=== PATIENT | female | born 1985 | race Two or more races ===

== ENCOUNTER 2017-12-18 14:02 | Emergency (ER) | payer OTHER ==
[~2017-12-18] VITALS: Ht 165.1 cm; Wt 83.1 kg
[2017-12-18] MEDS ORDERED: DIPHENHYDRAMINE 25 MG CAPSULE PO ONE (14:30)
[2017-12-18] MEDS ORDERED: FAMOTIDINE 20 MG TABLET PO ONE (14:30)
[2017-12-18] MEDS ORDERED: FAMOTIDINE 20 MG TABLET ONE (14:47)
[2017-12-18] MEDS ORDERED: DIPHENHYDRAMINE 25 MG CAPSULE ONE (14:47)
[2017-12-18 15:02] VITALS: BP 122/78
== END 2017-12-18 15:10 | disposition home or self-care (01) ==
LOC: ED 14:47
DX: L50.9 Urticaria, unspecified (principal); R60.0 Localized edema
CPT/HCPCS: 73610; 93971; 99284; Q0163

== ENCOUNTER 2018-02-12 06:22 | Inpatient (IN) | payer OTHER ==
[~2018-02-12] VITALS: Ht 165.1 cm; Wt 91.0 kg
[2018-02-12] MEDS ORDERED: NEWBORN KIT ONE ×2 (07:10→07:18)
[2018-02-12] MEDS ORDERED: LIDOCAINE/PF 1%, 30ML ONE (07:10)
[2018-02-12] MEDS ORDERED: LACTATED RINGERS 1,000 ML IV SCH ×2 (07:14→10:27)
[2018-02-12] MEDS ORDERED: OXYTOCIN 30U/ 0.9% NaCL 500ML 500 ML IV ONE (07:14)
[2018-02-12] MEDS ORDERED: OXYTOCIN 30U/ 0.9% NaCL 500ML 500 ML IV PRN (07:14)
[2018-02-12] MEDS ORDERED: D5%-LACTATED RINGERS 1,000 ML IV SCH (07:14)
[2018-02-12] MEDS ORDERED: OXYTOCIN 30U/ 0.9% NaCL 500ML 500 ML ONE (07:18)
[2018-02-12] MEDS ORDERED: CALCIUM CARBONATE 500 MG TAB.CHEW PO PRN (07:30)
[2018-02-12] MEDS ORDERED: ONDANSETRON 2MG/ML, 2ML IVPush PRN (07:30)
[2018-02-12] MEDS ORDERED: SODIUM CITRATE/CITRIC ACID 30 ML UDC PO PRN (07:30)
[2018-02-12] MEDS ORDERED: ALUMINUM/MAG/SIMETHICONE 30 ML UDC PO PRN (07:30)
[2018-02-12 08:33] LABS: BASOPHILS # (AUTO) 0.04 x10^3/uL (0-0.1); BASOPHILS % (AUTO) 0 % (0-1); EOSINOPHILS # (AUTO) 0.16 x10^3/uL (0-0.4); EOSINOPHILS % (AUTO) 1 % (1-7); LYMPHOCYTES # (AUTO) 2.53 x10^3/uL (1-3.4); LYMPHOCYTES % (AUTO) 18 % (22-44); MD NO; MEAN CORPUSCULAR HEMOGLOBIN 31.1 pg (27.0-34.8); MEAN CORPUSCULAR VOLUME 91.5 fL (80-100); MEAN PLATELET VOLUME 8.1 fL (7.4-10.4); MONOCYTES # (AUTO) 0.62 x10^3/uL (0.2-0.8); MONOCYTES % (AUTO) 4 % (2-9); NEUTROPHILS % (AUTO) 76 % (42-75); PLATELET COUNT 212 x10^3/uL (130-400); RED BLOOD COUNT 3.98 x10^6/uL (3.82-5.3); RED CELL DISTRIBUTION WIDTH 13.4 % (9.6-15.2)
[2018-02-12] MEDS ORDERED: FENTANYL PF 100 MCG/2ML ONE ×2 (08:55→09:53)
[2018-02-12] MEDS: FENTANYL PF 100 MCG/2ML IVPush PRN ×2 (08:57→09:57)
[2018-02-12] MEDS ORDERED: LACTATED RINGERS 1,000 ML INTUTE SCH (10:00)
[2018-02-12] MEDS ORDERED: LACTATED RINGERS 1,000 ML INTUTE PRN (10:00)
[2018-02-12] MEDS ORDERED: FENTANYL/BUPIV./NS/PF 250 ML EPIDCONT SCH (10:27)
[2018-02-12] MEDS ORDERED: FENTANYL/BUPIV./NS/PF 0 ML EPIDCONT ONE (10:30)
[2018-02-12] MEDS ORDERED: LACTATED RINGERS 1,000 ML IVBOLUS PRN (10:30)
[2018-02-12] MEDS ORDERED: BUPIVACAINE/PF 0.25% ONE (10:30)
[2018-02-12] MEDS ORDERED: EPHEDRINE 50 MG/ML, 1ML IVPush PRN (10:30)
[2018-02-12] MEDS ORDERED: NALOXONE 0.4 MG/ML, 1ML IVPush PRN (10:30)
[2018-02-12] MEDS: OXYTOCIN 30U/ 0.9% NaCL 500ML 500 ML IV SCH ×2 (11:51→21:46)
[2018-02-12] MEDS ORDERED: HYDROcodone/APAP 5/325 TABLET ONE (11:54)
[2018-02-12] MEDS ORDERED: IBUPROFEN 600 MG TABLET ONE (11:54)
[2018-02-12] MEDS: IBUPROFEN 600 MG TABLET PO PRN ×2 (11:56→18:36)
[2018-02-12] MEDS ORDERED: MISOPROSTOL 200 MCG TABLET PR PRN ×2 (12:00)
[2018-02-12] MEDS ORDERED: OXYcodone/APAP 5/325MG TABLET PO PRN (12:00)
[2018-02-12] MEDS ORDERED: METOCLOPRAMIDE 5 MG/ML, 2ML IV PRN (12:00)
[2018-02-12] MEDS ORDERED: ONDANSETRON 2MG/ML, 2ML IV PRN (12:00)
[2018-02-12] MEDS ORDERED: CARBOPROST TROMETHAMINE 250 MCG/ML, 1ML IM PRN (12:00)
[2018-02-12] MEDS ORDERED: ACETAMINOPHEN 325 MG TABLET PO PRN (12:00)
[2018-02-12] MEDS ORDERED: METHYLERGONOVINE 0.2 MG/ML IM PRN (12:00)
[2018-02-12 13:30] VITALS: BP 102/63
[2018-02-12] MEDS: OXYcodone/APAP 5/325MG TABLET PO PRN ×2 (16:18→21:41)
[2018-02-12 17:30] VITALS: BP 106/60
[2018-02-12 19:31] LABS: MEAN CORPUSCULAR HEMOGLOBIN 31.4 pg (27.0-34.8); MEAN CORPUSCULAR HGB CONC 34.1 g/dL (32.4-35.8); MEAN CORPUSCULAR VOLUME 92.1 fL (80-100); MEAN PLATELET VOLUME 7.7 fL (7.4-10.4); PLATELET COUNT 214 x10^3/uL (130-400); RED BLOOD COUNT 3.75 x10^6/uL (3.82-5.3); RED CELL DISTRIBUTION WIDTH 13.1 % (9.6-15.2)
[2018-02-12 19:35] VITALS: BP 96/61
[2018-02-12 19:49] LABS: MD YES
[2018-02-12 19:51] LABS: BAND#(MANUAL) 2.04 x10^3/uL; BANDS%(MANUAL) 11 % (0-7); LYMPH#(MANUAL) 3.33 x10^3/uL (1-3.4); LYMPHS% (MANUAL) 18 % (22-44); MONOS% (MANUAL) 7 % (2-9); SEG#(MANUAL) 11.84 x10^3/uL (1.8-6.8); SEGS% (MANUAL) 64 % (42-75)
[2018-02-12 19:53] LABS: <RBC MORPHOLOGY> NORMAL
[2018-02-12 19:54] LABS: <PLATELET ESTIMATE> ADEQUATE; <PLT MORPHOLOGY> NORMAL PLT MORPH; TOXIC GRAN 1+
[2018-02-12] MEDS: DOCUSATE 100 MG CAPSULE PO PRN (21:41)
[2018-02-13 00:35] VITALS: BP 99/59
[2018-02-13] MEDS: IBUPROFEN 600 MG TABLET PO PRN ×3 (02:29→14:22)
[2018-02-13 04:00] VITALS: BP 95/60
[2018-02-13] MEDS: OXYTOCIN 30U/ 0.9% NaCL 500ML 500 ML IV SCH (07:51)
[2018-02-13 08:00] VITALS: BP 100/63
[2018-02-13] MEDS: OXYcodone/APAP 5/325MG TABLET PO PRN ×2 (08:12→14:22)
[2018-02-13] MEDS: DOCUSATE 100 MG CAPSULE PO PRN (08:12)
[2018-02-13] MEDS ORDERED: PRENATAL VIT/IRON/FA 1 EACH TABLET PO SCH (09:00)
[2018-02-13] MEDS ORDERED: DOCU-131 PO (13:46)
[2018-02-13] MEDS ORDERED: IBUP-1222 PO (13:46)
[2018-02-13] MEDS ORDERED: OXYC-302 PO (13:47)
== END 2018-02-13 18:29 | disposition home or self-care (01) | DRG 775 ==
LOC: LDOP 06:22 → LDIP 06:59 → 2NW 13:00
PROVIDERS: ADMIT Obstetrics & Gynecology; ATTEND Obstetrics & Gynecology
PROC: 10E0XZZ Delivery of Products of Conception, External Approach (ICD-10-PCS; principal; 2018-02-12)
PROC: 0KQM0ZZ Repair Perineum Muscle, Open Approach (ICD-10-PCS; 2018-02-12)
PROC: 10907ZC Drainage of Amniotic Fluid, Therapeutic from Products of Conception, Via Natural or Artificial Opening (ICD-10-PCS; 2018-02-12)
PROC: 0UQMXZZ Repair Vulva, External Approach (ICD-10-PCS; 2018-02-12)
PROC: 3E033VJ Introduction of Other Hormone into Peripheral Vein, Percutaneous Approach (ICD-10-PCS; 2018-02-12)
DX: O62.3 Precipitate labor (principal); O70.1 Second degree perineal laceration during delivery; O71.82 Other specified trauma to perineum and vulva; Z37.0 Single live birth; Z3A.39 39 weeks gestation of pregnancy; O71.89 Other specified obstetric trauma
CPT/HCPCS: 36415; 85025; 86850; 86900; J3010; J2590; J7120

== ENCOUNTER 2020-12-07 18:50 | Emergency (ER) | payer OTHER ==
[~2020-12-07] VITALS: Ht 165.1 cm; Wt 85.2 kg
[~2020-12-07 18:50] MED LIST: DOCU-131 PO; IBUP-1222 PO; OXYC1TAB12 PO
[2020-12-07] MEDS ORDERED: ONDANSETRON 2MG/ML, 2ML ONE (19:14)
[2020-12-07] MEDS ORDERED: MAALOX/HYOSCYAMINE/LIDOCAINE 45 ML BTL ONE (19:14)
[2020-12-07] MEDS ORDERED: FAMOTIDINE 20 MG/2 ML ONE (19:15)
[2020-12-07] MEDS ORDERED: MAALOX/HYOSCYAMINE/LIDOCAINE 45 ML BTL PO ONE (19:30)
[2020-12-07] MEDS ORDERED: ONDANSETRON 2MG/ML, 2ML IVPush ONE (19:30)
[2020-12-07] MEDS ORDERED: FAMOTIDINE 20 MG/2 ML IVPush ONE (19:30)
[2020-12-07] MEDS ORDERED: SODIUM CHLORIDE FLUSH 10ML SYR IVF ONE (19:30)
[2020-12-07] MEDS ORDERED: SODIUM CHLORIDE 0.9% 1,000ML IVBOLUS ONE (19:30)
[2020-12-07 19:33] LABS: BASOPHILS % (AUTO) 0 % (0-1); EOSINOPHILS % (AUTO) 0 % (1-7); LYMPHOCYTES % (AUTO) 16 % (22-44); MEAN CORPUSCULAR HEMOGLOBIN 31.9 pg (27.0-34.8); MEAN CORPUSCULAR HGB CONC 34.5 g/dL (32.4-35.8); MEAN PLATELET VOLUME 8.2 fL (7.4-10.4); MONOCYTES % (AUTO) 4 % (2-9); NEUTROPHILS % (AUTO) 79 % (42-75); PLATELET COUNT 261 x10^3/uL (130-400); RED BLOOD COUNT 4.94 x10^6/uL (3.82-5.3); RED CELL DISTRIBUTION WIDTH 12.6 % (9.6-15.2)
[2020-12-07 19:42] LABS: ALANINE AMINOTRANSFERASE 26 U/L (12-78); ALBUMIN 4.5 g/dL (3.4-5.0); ANION GAP 9 mmol/L (5-15); CALCIUM 9.5 mg/dL (8.5-10.1); CHLORIDE 105 mmol/L (98-107); CREATININE 0.87 mg/dL (0.55-1.02)
[2020-12-07 19:46] LABS: ALKALINE PHOSPHATASE 63 U/L (45-117); BILIRUBIN,TOTAL 0.7 mg/dL (0.2-1.0); TOTAL PROTEIN 8.4 g/dL (6.4-8.2)
[2020-12-07] MEDS ORDERED: MORPHINE SULFATE 4 MG/ML, 1ML ONE (20:14)
--- NOTE | 2020-12-07 20:18 | NUR ---
PT MEDICATED PER [facility] FOR PAIN
--- NOTE | 2020-12-07 20:19 | NUR ---
US AT BEDSIDE
[2020-12-07] MEDS ORDERED: MORPHINE SULFATE 4 MG/ML, 1ML IVPush ONE (20:30)
[2020-12-07] MEDS ORDERED: METOCLOPRAMIDE 5 MG/ML, 2ML ONE (20:59)
[2020-12-07] MEDS ORDERED: METOCLOPRAMIDE 5 MG/ML, 2ML IVPush ONE (21:00)
--- NOTE | 2020-12-07 21:07 | NUR ---
Pt states pain in abd has improved, pain is now intermittent. Pt continues to have n/v. Provider aware, and new medication ordered. Pt medicated per order. Will continue to monitor.
[2020-12-07 21:49] VITALS: BP 127/87
[2020-12-08] MEDS ORDERED: NO MEDS PER PT (06:36)
== END 2020-12-07 21:57 | disposition home or self-care (01) ==
LOC: ED 20:17
DX: R10.13 Epigastric pain (principal); R11.2 Nausea with vomiting, unspecified; R19.7 Diarrhea, unspecified
CPT/HCPCS: 36415; 76700; 80053; 83690; 84703; 85025; 96361; 96374; 96375; 99284; J2270; J2405; J2765; J7030

== ENCOUNTER 2020-12-08 06:00 | Day surgery (SDC) | payer OTHER ==
[~2020-12-08] VITALS: Ht 165.1 cm; Wt 86.9 kg
[~2020-12-08 06:00] MED LIST changes: -OXYC1TAB12 PO; +OXYC1TAB14 PO
[2020-12-08] MEDS ORDERED: CHLORHEXIDINE 15 ML UDC ONE (06:21)
[2020-12-08] MEDS ORDERED: NO MEDS PER PT (06:36)
[2020-12-08 06:43] VITALS: BP 105/71
[2020-12-08] MEDS ORDERED: SILVER NITRATE STICK TP ONE (06:57)
[2020-12-08] MEDS ORDERED: BUPIVACAINE/PF-EPI 0.25% 1:200K ONE (06:57)
[2020-12-08] MEDS ORDERED: CHLORHEXIDINE 15 ML UDC PO ONE (07:00)
[2020-12-08] MEDS ORDERED: LACTATED RINGERS 1,000 ML IV SCH (07:00)
[2020-12-08] MEDS ORDERED: MIDAZOLAM 1 MG/ML, 2ML ONE (07:21)
[2020-12-08] MEDS ORDERED: FENTANYL PF 250 MCG/5ML ONE (07:21)
[2020-12-08] MEDS ORDERED: PROPOFOL 50 ML ONE (07:21)
[2020-12-08] MEDS ORDERED: SUCCINYLCHOLINE 20 MG/ML, 10ML ONE (07:34)
[2020-12-08] MEDS ORDERED: CEFAZOLIN 1,000 MG ONE (07:34)
[2020-12-08] MEDS ORDERED: ROCURONIUM 10 MG/ML,10ML ONE (07:34)
[2020-12-08] MEDS ORDERED: morphine SULFATE 10 MG/ML, 1ML IVPush PRN (08:00)
[2020-12-08] MEDS ORDERED: DIAZEPAM 5 MG/ML, 2ML IVPush PRN (08:00)
[2020-12-08] MEDS ORDERED: EPHEDRINE 50 MG/ML, 1ML IVPush PRN (08:00)
[2020-12-08] MEDS ORDERED: PROMETHAZINE 25 MG/ML, 1ML IVPush PRN (08:00)
[2020-12-08] MEDS ORDERED: OXYcodone 5 MG/5 ML ORAL.SOL UDC PO PRN (08:00)
[2020-12-08] MEDS ORDERED: LABETALOL 5MG/ML, 20ML IV PRN (08:00)
[2020-12-08] MEDS ORDERED: ACETAMINOPHEN 325 MG TABLET PO PRN (08:00)
[2020-12-08] MEDS ORDERED: ONDANSETRON 2MG/ML, 2ML IVPush PRN (08:00)
[2020-12-08] MEDS ORDERED: MEPERIDINE/PF 25MG/0.5ML IVPush PRN (08:00)
[2020-12-08] MEDS ORDERED: DIPHENHYDRAMINE 50 MG/ML, 1ML IVPush PRN (08:00)
[2020-12-08] MEDS ORDERED: EPHEDRINE 50 MG/ML, 1ML IM PRN (08:00)
[2020-12-08] MEDS ORDERED: FENTANYL PF 100 MCG/2ML IV PRN (08:00)
== END 2020-12-08 10:30 | disposition home or self-care (01) ==
LOC: OUT 06:00
PROVIDERS: ATTEND Obstetrics & Gynecology
DX: N83.291 Other ovarian cyst, right side (principal); N85.4 Malposition of uterus; Z90.49 Acquired absence of other specified parts of digestive tract; Z20.822 Contact with and (suspected) exposure to COVID-19
CPT/HCPCS: 36415; 58662; 86850; 86900; 87635; J0330; J0690; J2250; J2704; J3010; J7120